=== PATIENT | male | born 1985 | race Two or more races ===

== ENCOUNTER 2017-02-06 01:20 | Emergency (ER) | payer MEDICAID ==
[~2017-02-06] VITALS: Ht 170.2 cm; Wt 78.0 kg
[2017-02-06 01:42] VITALS: BP 133/67
== END 2017-02-06 04:58 | disposition home or self-care (01) ==
LOC: ER 01:25
DX: M54.5 Low back pain (principal); K42.9 Umbilical hernia without obstruction or gangrene; R51 Headache; V49.9XXA Car occupant (driver) (passenger) injured in unspecified traffic accident, initial encounter; Y93.89 Activity, other specified; Y99.8 Other external cause status; Y92.89 Other specified places as the place of occurrence of the external cause
CPT/HCPCS: 70450; 71250; 72125; 72131